=== PATIENT | female | born 1995 | race Caucasian/White ===

== ENCOUNTER 2021-12-07 10:49 | Emergency (ER) | payer OTHER, MEDICAID, SELFPAY ==
[2021-12-07 11:58] VITALS: BP 156/89; PULSE 110; RESP 18; TEMP 36.8; O2SAT 99; BMI 30.4
--- NOTE | 2021-12-07 13:09 | ED.PSYCH ---
HPI - Psych General Chief Complaint: Psychiatric Symptoms Stated Complaint: Crisis Time Seen by Provider: 12/07/21 10:58 Source: patient Mode of arrival: ambulatory Limitations: no limitations History of Present Illness HPI Narrative: 26-year-old female who presents emergency department for evaluation of depression and suicidal ideation. The patient states she has a history of depression for at least 10 years but has never been treated for depression. She states that over the past 2 weeks she has been more depressed and she has been having suicidal thoughts. She states that she has no plan. She states when she was in high school, she felt suicidal she has tried to hurt herself by abusing drugs(Linda and LSD). She states that she cannot identify specific trigger. She recently graduated from college. He does have a boyfriend. She states there have been several recent deaths that of upset her. She states that she recently stopped her control pills. She denies having auditory or visual hallucinations. The patient denied fever, chills, sore throat, cough, chest pain, shortness of breath, nausea, vomiting, diarrhea, abdominal pain, frequency, urgency, dysuria, black stools or bloody stools. She states she does have some slight rhinorrhea but she believes this is due to allergies. Related Data Allergies Allergy/AdvReac Type Severity Reaction Status Date / Time No Known Allergies Allergy Unverified 06/18/20 19:01 [No Known Allergies*] Review of Systems Review of Systems: Yes all other systems are reviewed and are negative [facility] Past Medical History [facility] Narrative: Past medical history: None. Past surgical history: None. Social history: She denies tobacco use. She states she drinks alcohol once a week. She states she smokes marijuana daily. Social History Social History Advance Directives: No Advance Directives Information Provided: No Patient : No Physical Exam Vital Signs: Vital Signs: Last Vital Signs Temp 98.3 F 12/07/21 11:58 Pulse 110 H 12/07/21 11:58 Resp 18 12/07/21 11:58 BP 156/89 H 12/07/21 11:58 Pulse Ox 99 12/07/21 11:58 BMI result Body Mass Index 30.4 Const: General: cooperative and no acute distress Orientation/consciousness: oriented to person and oriented to place Limitations: no limitations HENMT: Head: Yes normal to inspection, Yes normocephalic and Yes atraumatic Ears: external ears normal General nose exam: Normal external nose present Face and sinus: Yes normal facial exam Mouth: Normal oral and palatal mucosa present Throat: Yes posterior oropharynx normal Eyes: General: appearance normal, both eyes and all related structures Pupils: Equal, round and reactive pupils present Neck: Neck: Yes normal visual inspection, Yes no lymphadenopathy, Yes trachea midline and Yes supple Chest: Chest palpation & inspection: normal inspection of the chest and normal palpation of entire chest wall Resp: Effort & Inspection: normal respiratory effort and able to speak in complete sentences Auscultation: clear to auscultation bilaterally Cardio: Rate: regular rate Rhythm: regular rhythm Heart sounds: S1 normal heart sound present, S2 normal heart sound present and no murmurs GI: Inspection: Yes normal to inspection Palpation (GI): Soft to palpation, nontender and no guarding Auscultation: normal bowel sounds : General: Yes no CVA tenderness Back/Spine/Pelvis: Back: no CVA tenderness Skin: General skin exam: no rashes or lesions noted Neuro: General: oriented to person and oriented to place Cranial nerves: Yes CN's II-XII intact bilaterally and Yes Equal, round and reactive pupils present Cognition (Neuro): normal cognition Motor exam (neuro): 5/5 motor strength present throughout Extrem: General: Yes normal to inspection Psych: Appearance: grossly normal Speech and movement: Normal speech and movement present Affect: normal affect Attitude: cooperative Thought process: Normal thought process present Thought content: Suicidality present and no homicidality Course Course Course Narrative: 26-year-old female with no significant past medical history, states that she has had depression for 10 years but has not been treated for depression. She had suicidal ideation when she was in high school and she states that she abused drugs at that time. She states that she has been more depressed and has been having suicidal thoughts for the past 2 weeks. She does not have a plan. She has not been significantly ill in any way recently, she did stop her control pills. Patient's vital signs did reveal elevated blood pressure 156/89 with a pulse of 110 on initial presentation. Exam was otherwise unremarkable. At this time I believe the patient is cleared for psychiatric evaluation and the patient was seen by the Care Team. 1325: Care Team recommendation was refer the patient to partial outpatient treatment programs. The patient will be discharged home with printed and verbal instructions as per the care team. Discharge Plan Discharge Clinical Impression: Depression, Suicidal ideation Patient Disposition: Home, Self-Care Instructions: Depression (ED) Additional Instructions: Please follow the recommendations from the Care Team. If you feel like you are going to hurt herself or anyone else, please return to the emergency department and we can have the re-evaluated for possible treatment in the hospital. Follow-up with your doctor in 2 days. Please return to the emergency department if your symptoms get worse or if you develop any symptoms that are concerning to you.
--- NOTE | 2021-12-08 09:46 | MHC.CARE ---
CARE Team calls pt as a follow up to her ED visit yesterday.? Pt stated that she feels better than she did yesterday and found that the visit helped.? She did express an interest in PHP but stated that she cannot attend right now and would be looking for a start at around the beginning of December.? Pt expressed that she needed to coordinate time off with her employer and discuss a leave of absence with human resources.? It was suggested to pt that she look into her employers EAP or inquire regarding whether or not her employer has a contract with a tele doc service. CARE Team will send a referraql to PHP.
== END 2021-12-07 14:47 | disposition home or self-care (01) ==
PROVIDERS: Emergency Provider Emergency Medicine Emergency Medical Services; PCP Internal Medicine
DX: F32.A Depression, unspecified (principal); R45.851 Suicidal ideations; F12.90 Cannabis use, unspecified, uncomplicated
CPT/HCPCS: 99282; 99283

== ENCOUNTER 2022-01-17 09:30 | Outpatient (RCR) | payer OTHER, MEDICAID, SELFPAY ==
[2021-12-24 12:31] VITALS: BMI 33.6
--- NOTE | 2021-12-24 14:01 | PC.ADMIT ---
Patient is a 26 year old female who was referred to [facility] by the Crisis Care Team d/t increased sxs of depression with passive SI reports having thoughts for the past month that she would be better off if she was not around, denied plan or intent to harm or kill herself. Patient also reports increased anxiety and PTSD sxs. Patient reports feeling overwhelmed with job stresses and having relationship issues with her boyfriend. Patient reports taking a leave of absence from her job to work on her mental health. Patient presents with depressed mood and affect. She is oriented x4. Emailed patient a copy of her safety plan if needed. Patient is not on any prescription medications at this time.
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
--- NOTE | 2021-12-27 16:21 | PC.NURSE ---
Case opened in treatment team.
--- NOTE | 2021-12-28 15:04 | P.PNPSP_ITS ---
Subjective Subjective Date of Service: 12/28/21 Reason For Visit: MDD,generalized Anxiety Guardianship: No Medical Problems Affecting Mental Status: No Interim History: Describes mood as I'm okay . States was feeling more depressed yesterday, but better today . Attributes this to plan to see a friend after [facility] today, which she is looking forward to. Reports feels safe, no SI/HI. No safety concerns. Had some GI upset first several days with sertraline, side effects have since subsided. Requests paperwork from her employer be completed, has sent form to RN. Medication Compliance: Yes Side effects from medications: No (had initial GI upset, has since subsided. ) Attending Groups: Yes Review of Systems Acute medical concerns: No Medical Review of Systems: unchanged Review of Systems Review of Systems Yes all other systems are reviewed and are negative Constitutional: Reports no additional constitutional complaints Mental Status Exam Mental Status Exam Narrative: Well-developed, overweight female, in NAD. Describes her mood as I'm okay . Denies SIB, SI/HI today. Patient Appearance: Well Grooomed and Appropriate Patient Orientation: Person, Place, Time and Situation Level of Consciousness: Awake, Appropriate and Alert Patient Behavior: Appropriate, Cooperative and Good Eye Contact Mood Description: Calm and Appropriate Affect Description: Depressed and Flat Patient Cognition Impaired: No Ability to Follow Directions: Excellent Speech Pattern: Clear, Appropriate and Coherent Memory Description: Intact Hallucinations: None Delusions: Not Present Perceptual Disturbances: Depersonalization Thought Process: Intact Depressive Symptoms: Increased Anxiety, Diff. Making Decisions, Difficulty Sleeping, Changes in Appetite, Loss of Int. in Activity, Feelings of Worthlessness, Hopelessness, Isolating-Friends/Family, Feelings of Guilt, Unhappiness, Increased Fatigue and Low Self Esteem Judgement: Fair Diagnostics Vital Signs (24Hr): BMI result Body Mass Index 33.6 Assessment & Plan Assessment & Plan (1) Major depressive disorder, recurrent, moderate: Status: Acute Code(s): F33.1 - Major depressive disorder, recurrent, moderate Assessment and Plan: Describes mood as I'm okay . States was feeling more depressed yesterday, but better today . Reports feels safe, no SI/HI. No safety concerns. Had some GI upset first several days with sertraline, side effects have since subsided. Started with 25mg X4 days, now taking 50mg daily. Discussed medication, including dosing, side effects, benefits, how long to expect before noticing improvement, etc. Will continue with 50mg for now. (2) Post-traumatic stress disorder, chronic: Status: Acute Code(s): F43.12 - Post-traumatic stress disorder, chronic Assessment and Plan: Did not report any overt PTSD sx today. Says she is still adjusting to PHP, but overall finding the groups helpful. Plan 1. Continue with sertraline 50mg. 2. Continue with current PHP plan of care. 3. Follow-up as per protocol. Patient educated on: diagnosis, medication risk/benefits and therapeutic strategies Informed Consent: understands Reason for contiued partial hosp. stay Substantial Risk for: harm to self, inability to function and med/psych deco mpensation Certification I certify that partial hospital treatment is medically necessary due to the symptoms and problems resulting from the patient's mental illness and the failure to treat the patient at the partial hospital level of care would likely result in the patient requiring inpatient psychiatric care which could not be prevented at a less intensive level of care. I spent minutes with the patient and/or on the patient floor today, greater than?50% of which was spent counseling/coordinating care. Discharge Plan Discharge Attending provider: Rodolfo Menendez Medications: New sertraline 50 mg tablet 50 mg PO DAILY Qty: 7 0RF Rx Instructions: Take 1/2 tab (25mg) for 4 days, then start taking 1 tab (50mg) daily. Telehealth Telehealth Location of provider rendering services: practice address Location of patient: address on file Patient Identification confirmed using: Name, : Yes Telehealth method: video Patient verbally consented to treatment: Yes Patient verbally consented to billing insurance company: Yes Patient informed of any privacy concerns related to visit: Yes Time spent with patient (mins): 15
--- NOTE | 2021-12-29 15:11 | PC.NURSE ---
I called pt and discussed options for aftercare as we did not complete this conversation when reviewing treatment plan. She verbally signed a release of information for [facility] and is in agreement to be referred there. I then called Rosa Maria Peters at [facility] to obtain intake packet. Rosa Maria emailed this to me.
--- NOTE | 2021-12-30 15:07 | PC.NURSE ---
I completed referral packet for pt to attend [facility] and attempted to fax it 6 times (throughout yesterday afternoon and today). Each time received a busy number . I called [facility] staff twice, and they confirmed the fax number and said keep trying. Aliya, the payroll secretary agreed to try to fax it again in the morning.
--- NOTE | 2022-01-03 14:33 | PC.NURSE ---
I received a message from Rosa Maria Peters at [facility] wanting to know the polic woodard for pt's secondary insurance ([facility]). I asked pt about this after the 4th group. She said the policy woodard is her father, Balbir Rogers, 06/12/72. With pt's permission, I called and LM for Rosa Maria Peters at [facility] ([phone]) informing her of this.
--- NOTE | 2022-01-06 12:54 | P.PNPSP_ITS ---
Subjective Subjective Date of Service: 01/06/22 Reason For Visit: MDD,generalized Anxiety Guardianship: No Medical Problems Affecting Mental Status: No Interim History: Describes mood as ?good ?. Expresses some anxiety about leaving [facility] tomorrow, will miss the structure. Plans to give her notice when she returns to work. Reports sertraline is working well for depression/anxiety symptoms. No SI, no safety concern. Medication Compliance: Yes Side effects from medications: No Attending Groups: Yes Review of Systems Acute medical concerns: No Medical Review of Systems: unchanged Review of Systems Review of Systems Yes all other systems are reviewed and are negative Constitutional: Reports no additional constitutional complaints Mental Status Exam Mental Status Exam Narrative: NAD. Describes her mood as good . Denies SIB, SI/HI. Patient Appearance: Well Grooomed and Appropriate Patient Orientation: Person, Place, Time and Situation Level of Consciousness: Awake, Appropriate and Alert Patient Behavior: Appropriate, Cooperative and Good Eye Contact Mood Description: Appropriate and Anxious Affect Description: Flat Patient Cognition Impaired: No Ability to Follow Directions: Excellent Speech Pattern: Clear, Appropriate and Coherent Memory Description: Intact Hallucinations: None Delusions: Not Present Perceptual Disturbances: Depersonalization Thought Process: Intact Depressive Symptoms: Increased Anxiety, Diff. Making Decisions, Difficulty Sleeping, Changes in Appetite, Loss of Int. in Activity, Feelings of Worthlessness, Hopelessness, Isolating-Friends/Family, Feelings of Guilt, Unhappiness, Increased Fatigue and Low Self Esteem Judgement: Fair Diagnostics Vital Signs (24Hr): BMI result Body Mass Index 33.6 Assessment & Plan Assessment & Plan (1) Major depressive disorder, recurrent, moderate: Status: Acute Code(s): F33.1 - Major depressive disorder, recurrent, moderate Assessment and Plan: Describes mood as ?good ?. Expresses some anxiety about leaving [facility] tomorrow, will miss the structure. Plans to give her notice when she returns to work, and has been looking for another position. She believe this will help, as she finds her current position as causing stress. Reports sertraline is working well for depression/anxiety symptoms. Reports she is doing well with current dose of 50mg, states it is effective in lessening sx of depression and anxiety. No SI, no safety concern. Feels ready to complete PHP tomorrow. Expresses hope for future. (2) Post-traumatic stress disorder, chronic: Status: Acute Code(s): F43.12 - Post-traumatic stress disorder, chronic Plan 1. Refill script for sertraline 50mg daily, 30-day supply sent to pharmacy. 2. Continue with current [facility] plan of care. 3. Patient set to discharge from [facility] tomorrow. Patient educated on: diagnosis, medication risk/benefits and therapeutic strategies Informed Consent: understands Reason for contiued partial hosp. stay Substantial Risk for: stable for discharge Certification I certify that partial hospital treatment is medically necessary due to the symptoms and problems resulting from the patient's mental illness and the failure to treat the patient at the partial hospital level of care would likely result in the patient requiring inpatient psychiatric care which could not be prevented at a less intensive level of care. I spent ____20__ minutes with the patient and/or on the patient floor today, greater than?50% of which was spent counseling/coordinating care. Discharge Plan Discharge Attending provider: Rodolfo Menendez Medications: New sertraline 50 mg tablet 50 mg PO DAILY Qty: 30 0RF Telehealth Telehealth Location of provider rendering services: practice address Location of patient: address on file Patient Identification confirmed using: Name, : Yes Telehealth method: video Patient verbally consented to treatment: Yes Patient verbally consented to billing insurance company: Yes Patient informed of any privacy concerns related to visit: Yes Minutes spent on Phone/Video with Pt.: 15
--- NOTE | 2022-01-07 09:15 | PC.NURSE ---
I spoke to pt after community meeting. She was a bit tearful and reported a desire to extend her end date beyond today (the planned discharge day). She reported feeling deeply sad after a difficult day yesterday, but that she couldn't give more specifics due to not having privacy. [facility] has still not called back with appointments for aftercare, and I told her we would extend her treatment stay.
--- NOTE | 2022-01-07 12:25 | P.PNPSP_ITS ---
Subjective Subjective Date of Service: 01/07/22 Reason For Visit: MDD,generalized Anxiety Guardianship: No Medical Problems Affecting Mental Status: No Interim History: Met with patient again today due to reports she was struggling this morning. She reports that she was trying to put on a positive front yesterday and trying to overcome her increased anxiety and depression. She states though that today she realizes she needs more help, as she continues with symptoms of anxiety, as well as depression. Describes feeling ?really sad, empty inside?. Interested in medication increase. Medication Compliance: Yes Side effects from medications: No Attending Groups: Yes Review of Systems Acute medical concerns: No Medical Review of Systems: unchanged Review of Systems Review of Systems Yes all other systems are reviewed and are negative Constitutional: Reports no additional constitutional complaints Mental Status Exam Mental Status Exam Narrative: NAD. Describes her mood as depressed, really sad, an emptiness inside . Also reports anxiety. Denies SIB, SI/HI. Struggling with ADLs. Patient Appearance: Appropriate Patient Orientation: Person, Place, Time and Situation Level of Consciousness: Awake, Appropriate and Alert Patient Behavior: Appropriate, Cooperative and Good Eye Contact Mood Description: Depressed and Anxious Affect Description: Depressed and Flat Patient Cognition Impaired: No Ability to Follow Directions: Excellent Speech Pattern: Clear, Appropriate and Coherent Memory Description: Intact Hallucinations: None Delusions: Not Present Perceptual Disturbances: Depersonalization Thought Process: Intact Thought Content: positive for Intact Depressive Symptoms: Increased Anxiety, Diff. Making Decisions, Difficulty Sleeping, Changes in Appetite (Overeating.), Loss of Int. in Activity, Feelings of Worthlessness, Hopelessness, Isolating-Friends/Family, Feelings of Guilt, Unhappiness, Increased Fatigue, Low Self Esteem, Loss of Energy and Difficulty Concentrating Judgement: Fair Diagnostics Vital Signs (24Hr): BMI result Body Mass Index 33.6 Assessment & Plan Assessment & Plan (1) Major depressive disorder, recurrent, moderate: Status: Acute Code(s): F33.1 - Major depressive disorder, recurrent, moderate Assessment and Plan: Patient reports that when she met with me yesterday she was trying to ?stay positive, and overcome it ?. She states that actually she has been feeling a mixture of depressive and anxiety symptoms. Reports that ?my body just wants to lie down, and be sad ?. Reports her support system is her to friends, but that she is finding this limited, and wants to expand her support network. She denies any SI at this time, but states that she is struggling daily to shower, brush her teeth, etc.. She is finding herself eating more as a way to cope. She states that she is extremely anxious about losing the structure and support of the [facility] program, as she believes she is not ready to leave. We discussed medication sertraline, she is willing to try increased dose of 75 mg. (2) Post-traumatic stress disorder, chronic: Status: Acute Code(s): F43.12 - Post-traumatic stress disorder, chronic Plan 1. Increase sertraline to 75 mg daily. 2. Continue with current [facility] plan of care. Patient educated on: diagnosis, medication risk/benefits and therapeutic strategies Informed Consent: understands Reason for contiued partial hosp. stay Substantial Risk for: harm to self, inability to function, rapid decompensation and med/psych decompensation Certification I certify that partial hospital treatment is medically necessary due to the symptoms and problems resulting from the patient's mental illness and the failure to treat the patient at the partial hospital level of care would likely result in the patient requiring inpatient psychiatric care which could not be prevented at a less intensive level of care. I spent ___30___ minutes with the patient and/or on the patient floor today, greater than?50% of which was spent counseling/coordinating care. Discharge Plan Discharge Attending provider: Rodolfo Menendez Medications: New sertraline 50 mg tablet 75 mg PO DAILY 30 Days Qty: 45 0RF Telehealth Telehealth Location of provider rendering services: practice address Location of patient: address on file Patient Identification confirmed using: Name, : Yes Telehealth method: video Patient verbally consented to treatment: Yes Patient verbally consented to billing insurance company: Yes Patient informed of any privacy concerns related to visit: Yes Minutes spent on Phone/Video with Pt.: 20
--- NOTE | 2022-01-07 13:12 | PC.NURSE ---
As I have not yet received a call or an appointment from [facility], I called again and spoke to Rosa Maria Fran. She said she put in this referral to the clinics on 01/04, and asked me to call Noemi Todd for the therapy appointment ([phone]) and to call Valente Paul for med management appt. I called and LM for Noemi ([id number]), and tried to call Mr. Paul, but was unsuccessful searching for his name in the names directory provided by the number given.
--- NOTE | 2022-01-07 13:26 | PC.NURSE ---
I called and left a message in a general mailbox at [facility] (cardiothoracic icu rn) on [facility] for Valente Beverly asking for a hospital discharge med management appt. I tried calling central intake again but was disconnected each time after the phone rang and rang and rang. I will try again later if I don't hear back.
--- NOTE | 2022-01-07 14:36 | PC.NURSE ---
In-person appointment at [facility]- [address] [place] [address] in [place], on 01/12/22 at 11am.
--- NOTE | 2022-01-10 15:05 | P.PNPSP_ITS ---
Subjective Subjective Date of Service: 01/10/22 Reason For Visit: MDD,generalized Anxiety Guardianship: No Medical Problems Affecting Mental Status: No Interim History: Continues with dysphoric mood, and anxiety. Request increase of sertraline. Overall states feels safe, no SI. Medication Compliance: Yes Side effects from medications: No Attending Groups: Yes Review of Systems Acute medical concerns: No Medical Review of Systems: unchanged Review of Systems Review of Systems Yes all other systems are reviewed and are negative Constitutional: Reports no additional constitutional complaints Mental Status Exam Mental Status Exam Narrative: NAD. Denies SIB, SI/HI. Patient Appearance: Appropriate Patient Orientation: Person, Place, Time and Situation Level of Consciousness: Awake, Appropriate and Alert Patient Behavior: Appropriate, Cooperative and Good Eye Contact Mood Description: Depressed and Anxious Affect Description: Depressed and Flat Patient Cognition Impaired: No Ability to Follow Directions: Excellent Speech Pattern: Clear, Appropriate, Coherent and Soft-Spoken Memory Description: Intact Hallucinations: None Delusions: Not Present Perceptual Disturbances: Depersonalization Thought Process: Intact Thought Content: positive for Intact Depressive Symptoms: Increased Anxiety, Diff. Making Decisions, Difficulty Sleeping, Changes in Appetite (Overeating.), Loss of Int. in Activity, Feelings of Worthlessness, Isolating-Friends/Family, Feelings of Guilt, Unhappiness, Increased Fatigue, Low Self Esteem and Loss of Energy Judgement: Fair Diagnostics Vital Signs (24Hr): BMI result Body Mass Index 33.6 Assessment & Plan Assessment & Plan (1) Major depressive disorder, recurrent, moderate: Status: Acute Code(s): F33.1 - Major depressive disorder, recurrent, moderate Assessment and Plan: Continues with dysphoric mood. Reports the 75 mg of sertraline appears to be helping, but would prefer a dose increase to 100 mg daily. Denies any SI, no safety concern. (2) Post-traumatic stress disorder, chronic: Status: Acute Code(s): F43.12 - Post-traumatic stress disorder, chronic Assessment and Plan: Continues with some anxiety, reports the weekend was rough regarding anxiety. Discussed adding a p.r.n. of Vistaril. Risks, benefits, and alternatives were discussed. Patient demonstrated her understanding, and after asking appropriate questions that were asked answered to her satisfaction, she was agreeable. Plan 1. Increase sertraline to 100 mg daily. 2. Start hydroxyzine 25 mg b.i.d. p.r.n. for anxiety. 3. Continue with current [facility] plan of care. 4. Follow-up as per protocol. Patient educated on: diagnosis, medication risk/benefits and therapeutic strategies Informed Consent: understands Reason for contiued partial hosp. stay Substantial Risk for: harm to self, inability to function, rapid decompensation and med/psych decompensation Certification I certify that partial hospital treatment is medically necessary due to the symptoms and problems resulting from the patient's mental illness and the failure to treat the patient at the partial hospital level of care would likely result in the patient requiring inpatient psychiatric care which could not be prevented at a less intensive level of care. I spent 25_ minutes with the patient and/or on the patient floor today, greater than?50% of which was spent counseling/coordinating care. Discharge Plan Discharge Attending provider: Rodolfo Menendez Medications: New sertraline 100 mg tablet 100 mg PO DAILY 30 Days Qty: 30 0RF hydroxyzine pamoate [Vistaril] 25 mg capsule 25 mg PO BID PRN (Reason: anxiety) Qty: 14 0RF Telehealth Telehealth Location of provider rendering services: practice address Location of patient: address on file Patient Identification confirmed using: Name, : Yes Telehealth method: video Patient verbally consented to treatment: Yes Patient verbally consented to billing insurance company: Yes Patient informed of any privacy concerns related to visit: Yes Minutes spent on Phone/Video with Pt.: 15
--- NOTE | 2022-01-13 09:54 | PM.EVENT ---
Event Note Date of Service: 01/13/22 Event Note: Prescription for hydroxyzine 25 mg b.i.d. p.r.n. for anxiety, 60 tabs, sent to pharmacy.
--- NOTE | 2022-01-14 12:20 | PC.NURSE ---
Patient scheduled to discharge from the program today. Reports feeling good about discharge and feels she is doing, really great . No safety concerns. Reviewed patient medications with patient. Patient reports no issues and is taking medications as prescribed.
== END 2022-01-17 23:59 | disposition home or self-care (01) ==
LOC: HO.PHPA 09:30
PROVIDERS: Visit Provider Psychiatry & Neurology Psychiatry
DX: F33.1 Major depressive disorder, recurrent, moderate (principal); F43.12 Post-traumatic stress disorder, chronic; Z79.899 Other long term (current) drug therapy
CPT/HCPCS: 90791; 90853

== ENCOUNTER 2023-11-17 13:59 | Outpatient (AMB) | payer BC, SELFPAY ==
--- NOTE | 2023-11-17 13:55 | AM.OFFWIN_ITS ---
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 Pt had a Molar cap put on Monday by his Dentist. She started experiencing pain yesterday. Bilateral TMJ pain with opening mouth and chewing. Denies any systemic symptoms. [facility] Medical History Spinal arthritis Social History Household Members: Significant Other and Other Household Members Other:: Two cats Patient Tobacco Use Status: Former Tobacco user Tobacco use type: Cigarette Review of Systems Const All systems reviewed & are unremarkable except as noted in HPI and below Physical Exam Vital Signs: Last Vital Signs Temp 98.4 F 11/17/23 14:03 Pulse 75 11/17/23 14:03 BP 120/74 11/17/23 14:03 Pulse Ox 100 11/17/23 14:03 Oxygen Delivery Method Room Air 11/17/23 14:03 BMI result Body Mass Index 34.2 Const General: no acute distress HEENT Head: Yes normocephalic Ears: external ears normal, TM normal on the left and TM abnormal obstructed by cerumen on the right General nose exam: Normal external nose present and Normal nasal mucous membranes and turbinates present Face and sinus: Yes normal facial exam and Yes sinuses nontender Mouth: tongue normal and moist mucous membranes Teeth and gingiva: dentition normal (No signs of infection, Gums pink and healthy) Throat: Yes posterior oropharynx normal Assessment & Plan Assessment & Plan (1) Jaw pain: Code(s): R68.84 - Jaw pain Plan: - Advised to f/u with 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 - Oraljel Medications: New ibuprofen 800 mg PO TID 30 tabs 0RF JAW PAIN R68.84 - Jaw pain Coding Level of Care Code New Pt Level 3 (41456) Diagnoses Jaw pain R68.84 Time Spent (min) 15
[2023-11-17 14:03] VITALS: BP 120/74; PULSE 75; TEMP 36.9; O2SAT 100; BMI 34.2
== END 2023-11-17 14:25 | disposition home or self-care (01) ==
PROVIDERS: PCP Internal Medicine; Visit Provider Nurse Practitioner Family
DX: R68.84 Jaw pain (principal)
CPT/HCPCS: 99203